=== PATIENT | male | born 1970 | race Caucasian/White ===

== ENCOUNTER 2019-04-09 03:00 | Emergency (ER) | payer OTHER ==
[2019-04-09 03:12] VITALS: TEMP 98.3
[2019-04-09] MEDS ORDERED: MORPHINE SULFATE 4 MG/ML SYRINGE IVP STA (03:16)
--- NOTE | 2019-04-09 03:20 | ED ---
Chest Pain HPI - General Stated Complaint: Chest Pain Time Seen by Provider: 04/09/19 03:05 - History of Present Illness Initial Comments: Tim is a 48-year-old morbidly obese male with history of hyperlipidemia and diabetes, former smoker who presents the ER today for evaluation of sudden onset severe right chest wall pain that began after a coughing fit. Patient reports he's recently been suffering from flulike illness with URI symptoms, subjective fevers and chills. Patient states that this evening he woke with sudden onset coughing fit and then developed severe pain in the right chest. Patient denies any cardiac history. Patient reports pain is severe it is causing nausea but no vomiting. Patient's at bedside states the patient is a minimally compliant diabetic. Has a history of high blood pressure is on lisinopril. Due to losing her insurance he has not been compliant with follow-up with Drs. She reports that for the past 6 months he's been complaining of lightheadedness and dizziness. He's recently began telling her that he doesn't believe he'll still be alive by the year due to feeling so unwell and being unwilling to follow-up with a physician. - Related Data Previous Rx's Medication Instructions Recorded Azithromycin [Zithromax Z-pack] 0 mg PO DIRECTED #6 tab 04/09/19 Allergies Allergy/AdvReac Type Severity Reaction Status Date / Time No Known Allergies Allergy Verified 04/09/19 03:12 Review of Systems ROS Statement: Those systems with pertinent positive or pertinent negative responses have been documented in the HPI. ROS Other: All systems not noted in ROS Statement are negative. EKG Findings - EKG Comments: EKG Findings:: EKG was obtained due to complaint of chest pain a 48-year-old lady obese male, EKG obtained at 3:14 AM, rate is 126 rhythm is sinus tachycardia there is a rightward axis, there are normal intervals, MO 152, QRS 90, QTc [address] elevations or depressions there is no evidence of acute ischemia or infarction. General Exam - General Exam Comments Initial Comments: Physical Exam GENERAL: Morbidly obese gentleman who appears acutely distressed due to pain HENT: Normocephalic, Atraumatic. EYES: PERRL, EOMI PULMONARY: Tachypnea, rapid shallow splinting respirations No audible rales rhonchi or wheezing was noted. CARDIOVASCULAR: Tachycardic regular, warm and well perfused extremities ABDOMEN: Morbidly obese SKIN: Skin is clear with no lesions or rashes and otherwise unremarkable. : Deferred NEUROLOGIC: Patient is alert and oriented x3. Moving all extremities spontaneously MUSCULOSKELETAL: Normal extremities with adequate strength and full range of motion. No lower extremity swelling or edema. No calf tenderness. PSYCHIATRIC: Anxious Course Vital Signs 04/09/19 04/09/19 04/09/19 03:07 03:37 04:00 Temperature 98.3 F Pulse Rate 129 H 104 H Pulse Rate [ 118 H Filler Wiper ] Respiratory 24 20 Rate Blood Pressure 114/83 118/65 O2 Sat by Pulse 95 95 Oximetry 04/09/19 05:00 Temperature Pulse Rate 101 H Pulse Rate [ Filler Wiper ] Respiratory 14 Rate Blood Pressure 103/64 O2 Sat by Pulse 95 Oximetry Disposition Clinical Impression: Right lower lobe pneumonia, Diabetes mellitus Disposition: HOME SELF-CARE Condition: Stable Instructions (If sedation given, give patient instructions): Bacterial Pneumonia (DC) Additional Instructions: Need to follow up with a primary care physician for repeat chest x-ray, the [facility] [place] will see you despite not having insurance. They have a sliding scale pay option. You can go to [employer] for coupons for her medications including her antibiotic which should be undertaken dollars with coupon. Prescriptions: Azithromycin [Zithromax Z-pack] 0 mg PO DIRECTED #6 tab Is patient prescribed a controlled substance at d/c from ED?: No Referrals: Nonstaff,Physician [Primary Care Provider] - 1-2 days
[2019-04-09 03:24] LABS: Basophils # (A) 0.2 k/uL (0-0.2); Basophils % (A) 1 %; Eosinophils # (A) 0.4 k/uL (0-0.7); Eosinophils % (A) 3 %; HCT 49.3 % (39.0-53.0); HGB 15.9 gm/dL (13.0-17.5); Lymphocytes # (A) 2.8 k/uL (1.0-4.8); Lymphocytes % (A) 19 %; MCH 27.5 pg (25.0-35.0); MCHC 32.3 g/dL (31.0-37.0); MCV 85.2 fL (80.0-100.0); Mean Platelet Volume 6.9; Monocytes # (A) 0.9 k/uL (0-1.0); Monocytes % (A) 6 %; Neutrophils # (A) 10.2 k/uL (1.3-7.7); Neutrophils % (A) 69 %; Platelet Count 392 k/uL (150-450); RBC 5.79 m/uL (4.30-5.90); RDW 13.1 % (11.5-15.5); WBC 14.8 k/uL (3.8-10.6)
[2019-04-09 03:35] LABS: ALT 20 U/L (21-72); AST 21 U/L (17-59); African American GFR (CKD) >90 (>60 ml/min/1.73 sqM); Albumin 4.3 g/dL (3.5-5.0); Alkaline Phosphatase 105 U/L (38-126); Anion Gap 13 mmol/L; Blood Urea Nitrogen 20 mg/dL (9-20); Calcium 9.8 mg/dL (8.4-10.2); Carbon Dioxide 26 mmol/L (22-30); Chloride 100 mmol/L (98-107); Glucose 202 mg/dL (74-99); INR 0.9 (<1.2); Magnesium 1.7 mg/dL (1.6-2.3); Partial Thromboplastin Time 25.8 sec (22.0-30.0); Potassium 4.2 mmol/L (3.5-5.1); Prothrombin Time 9.6 sec (9.0-12.0); Sodium 139 mmol/L (137-145); Total Bilirubin 0.2 mg/dL (0.2-1.3); Total Protein 7.5 g/dL (6.3-8.2)
--- NOTE | 2019-04-09 03:47 | XR ---
EXAMINATION TYPE: XR chest 1V portable DATE OF EXAM: 04/09/2019 COMPARISON: NONE HISTORY: Chest pain TECHNIQUE: Single frontal view of the chest is obtained. FINDINGS: Heart is normal. There is some atelectasis left midlung. The other lung ortega are clear. There is no heart failure. There is probably some atelectasis right lung base. IMPRESSION: Bilateral subsegmental atelectasis. Normal heart.
--- NOTE | 2019-04-09 04:31 | CT ---
EXAMINATION TYPE: CT chest angio for PE DATE OF EXAM: 04/09/2019 COMPARISON: None HISTORY: lower right chest pain CT DLP: 1210.8 mGycm Automated exposure control for dose reduction was used. CONTRAST: CT Chest for pulmonary embolism performed with with IV Contrast, patient injected with 150 mL of Isov ue 370. There are 3-D post processed images. FINDINGS: There is 3.5 cm rounded area of masslike consolidation at the lateral right lung base. There is no pl eural effusion. There is no pericardial effusion. Heart size is normal. Thoracic aorta shows no aneurysm or dissection. There is enlarged 2.2 cm pretracheal lymph node. Ther e are mediastinal lymph nodes that measure up to 1.5 cm. There are no hilar masses. There is normal contrast opacification of the pulmonary arteries. I see no filling defects. There are small bilateral bronchial lymph nodes up to 1 cm. There is some spurring in the thoracic spine. I se e no bony destructive process. There is small area of subsegmental atelectasis in the superior segmen t left lower lobe near the lateral chest wall. IMPRESSION: No evidence of pulmonary embolism. Masslike infiltrate lateral right lung base. Follow-up is recommen ded show clearing. Mild mediastinal and bronchial adenopathy. Pulmonary infarct is possible in the ri ght lower lobe in this patient with a history of chest pain.
[2019-04-09] MEDS ORDERED: ACET/COD 300 MG/30 MG STARTER PACK 6 TAB BTL PO STA (05:36)
[2019-04-09] MEDS ORDERED: AZITHROMYCIN 500 MG TAB PO STA (05:36)
[2019-04-09 06:08] VITALS: BP 116/83; PULSE 96; RESP 18
== END 2019-04-09 06:11 | disposition home or self-care (01) ==
LOC: EC 03:00
DX: J18.9 Pneumonia, unspecified organism (principal); R07.9 Chest pain, unspecified; R42 Dizziness and giddiness; E78.5 Hyperlipidemia, unspecified; E11.9 Type 2 diabetes mellitus without complications; E66.01 Morbid (severe) obesity due to excess calories; Z87.891 Personal history of nicotine dependence; Z68.41 Body mass index [BMI] 40.0-44.9, adult
CPT/HCPCS: 36415; 93005; 83880; 80053; 83735; 84484; 85025; 85610; 85730; 71045; 71275; 96374; 99285; J2270; Q9967

== ENCOUNTER 2020-06-15 13:06 | Observation (INO) | payer BC ==
[2020-06-15] MEDS ORDERED: ALBUTEROL HFA INHALER INHALATION STA (13:33)
--- NOTE | 2020-06-15 13:38 | ED ---
General Adult HPI - General Chief complaint: Shortness of Breath Stated complaint: Shortness of breath,congested Time Seen by Provider: 06/15/20 13:20 Source: patient, RN notes reviewed Mode of arrival: ambulatory Limitations: no limitations - History of Present Illness Initial comments: Patient is a pleasant 50-year-old male presenting to the emergency Department with complaints of fatigue. Symptoms present over the past few days. Symptoms somewhat worsening. Patient does have some nasal congestion at nighttime. Occasional cough. Patient does feel a little short of breath, especially at nighttime with some wheezing. Patient has had chills and myalgias. No loss of taste or loss of smell. No leg pain or leg swelling. - Related Data Home Medications Medication Instructions Recorded Confirmed Cyclobenzaprine [Flexeril] 10 mg PO HS 06/15/20 06/15/20 INSULIN ASPART (NovoLOG) [NovoLOG 60 unit SQ PC-TID 06/15/20 06/15/20 (formulary)] Insulin Glargine,Hum.rec.anlog 65 unit SQ DAILY 06/15/20 06/15/20 [Basaglar Kwikpen U-100] Lovastatin [Mevacor] 40 mg PO HS 06/15/20 06/15/20 Meloxicam [Mobic] 15 mg PO HS 06/15/20 06/15/20 Methylphenidate HCl 20 mg PO DAILY 06/15/20 06/15/20 [Methylphenidate HCl ER] lisinopriL [Prinivil] 20 mg PO DAILY 06/15/20 06/15/20 metFORMIN HCL 500 mg PO BID 06/15/20 06/15/20 Allergies Allergy/AdvReac Type Severity Reaction Status Date / Time No Known Allergies Allergy Verified 06/15/20 14:12 Review of Systems ROS Statement: Those systems with pertinent positive or pertinent negative responses have been documented in the HPI. ROS Other: All systems not noted in ROS Statement are negative. Constitutional: Reports: chills. Denies: fever Eyes: Denies: eye pain ENT: Reports: congestion. Denies: ear pain Respiratory: Reports: cough, dyspnea Cardiovascular: Denies: chest pain Endocrine: Reports: fatigue Gastrointestinal: Denies: abdominal pain Genitourinary: Denies: dysuria Musculoskeletal: Denies: back pain Skin: Denies: lesions Neurological: Denies: weakness Past Medical History Past Medical History: Diabetes Mellitus, Hyperlipidemia History of Any Multi-Drug Resistant Organisms: None Reported Past Surgical History: No Surgical Hx Reported Additional Past Surgical History / Comment(s): testicle Past Psychological History: Anxiety Smoking Status: Former smoker Past Alcohol Use History: Rare Past Drug Use History: None Reported General Exam Limitations: no limitations General appearance: alert, in no apparent distress Head exam: Present: normocephalic Eye exam: Present: normal appearance Neck exam: Present: normal inspection Respiratory exam: Present: normal lung sounds bilaterally. Absent: respiratory distress, wheezes Cardiovascular Exam: Present: regular rate, normal rhythm GI/Abdominal exam: Present: soft. Absent: tenderness Extremities exam: Present: normal inspection. Absent: pedal edema, calf tenderness Neurological exam: Present: alert Psychiatric exam: Present: normal affect, normal mood Skin exam: Present: normal color Course Vital Signs 06/15/20 13:09 Temperature 98.2 F Pulse Rate 103 H Respiratory 24 Rate Blood Pressure 175/92 O2 Sat by Pulse 93 L Oximetry - Reevaluation(s) Reevaluation #1: 06/15/20 14:53 Patient does meet sepsis criteria diagnosed at 1450. Blood culture and lactic a good have been ordered. IV antibiotics will be ordered. EKG Findings - EKG Comments: EKG Findings:: Sinus tachycardia 101. MO 188. QRS 82. QT 356. QTc 461. Right axis. Inferior T wave inversion. Normal QRS. Medical Decision Making - Medical Decision Making Patient reevaluated and updated. Case was discussed in detail with Dr. Phillips, who will admit For hospital call. Computed tomography scan of the chest will be ordered secondary to mild elevation of d-dimer. - Lab Data Result diagrams: 06/15/20 13:55 06/15/20 13:55 Lab Results 06/15/20 06/15/20 06/15/20 Range/Units 13:55 13:55 13:55 WBC 12.0 H (3.8-10.6) k/uL RBC 5.70 (4.30-5.90) m/uL Hgb 16.0 (13.0-17.5) gm/dL Hct 48.3 (39.0-53.0) % MCV 84.6 (80.0-100.0) fL MCH 28.1 (25.0-35.0) pg MCHC 33.2 (31.0-37.0) g/dL RDW 13.3 (11.5-15.5) % Plt Count 245 (150-450) k/uL MPV 7.4 Neutrophils % 80 % Lymphocytes % 11 % Monocytes % 4 % Eosinophils % 3 % Basophils % 1 % Neutrophils # 9.7 H (1.3-7.7) k/uL Lymphocytes # 1.3 (1.0-4.8) k/uL Monocytes # 0.5 (0-1.0) k/uL Eosinophils # 0.3 (0-0.7) k/uL Basophils # 0.1 (0-0.2) k/uL PT 9.9 (9.0-12.0) sec INR 0.9 (<1.2) APTT 25.1 (22.0-30.0) sec D-Dimer 0.64 H (<0.60) mg/L FEU Sodium 130 L (137-145) mmol/L Potassium 4.7 (3.5-5.1) mmol/L Chloride 97 L (98-107) mmol/L Carbon Dioxide 26 (22-30) mmol/L Anion Gap 7 mmol/L BUN 15 (9-20) mg/dL Creatinine 0.59 L (0.66-1.25) mg/dL Est GFR (CKD-EPI)AfAm >90 (>60 ml/min/1.73 sqM) Est GFR (CKD-EPI)NonAf >90 (>60 ml/min/1.73 sqM) Glucose 329 H (74-99) mg/dL Plasma Lactic Acid Juarez (0.7-2.0) mmol/L Calcium 9.0 (8.4-10.2) mg/dL Magnesium 1.8 (1.6-2.3) mg/dL Total Bilirubin 0.7 (0.2-1.3) mg/dL AST 19 (17-59) U/L ALT 22 (4-49) U/L Alkaline Phosphatase 91 (38-126) U/L Lactate Dehydrogenase 472 (313-618) U/L C-Reactive Protein 43.3 H (<10.0) mg/L Total Protein 6.7 (6.3-8.2) g/dL Albumin 3.9 (3.5-5.0) g/dL Coronavirus (PCR) (Not Detectd) 06/15/20 06/15/20 Range/Units 13:55 13:55 WBC (3.8-10.6) k/uL RBC (4.30-5.90) m/uL Hgb (13.0-17.5) gm/dL Hct (39.0-53.0) % MCV (80.0-100.0) fL MCH (25.0-35.0) pg MCHC (31.0-37.0) g/dL RDW (11.5-15.5) % Plt Count (150-450) k/uL MPV Neutrophils % % Lymphocytes % % Monocytes % % Eosinophils % % Basophils % % Neutrophils # (1.3-7.7) k/uL Lymphocytes # (1.0-4.8) k/uL Monocytes # (0-1.0) k/uL Eosinophils # (0-0.7) k/uL Basophils # (0-0.2) k/uL PT (9.0-12.0) sec INR (<1.2) APTT (22.0-30.0) sec D-Dimer (<0.60) mg/L FEU Sodium (137-145) mmol/L Potassium (3.5-5.1) mmol/L Chloride (98-107) mmol/L Carbon Dioxide (22-30) mmol/L Anion Gap mmol/L BUN (9-20) mg/dL Creatinine (0.66-1.25) mg/dL Est GFR (CKD-EPI)AfAm (>60 ml/min/1.73 sqM) Est GFR (CKD-EPI)NonAf (>60 ml/min/1.73 sqM) Glucose (74-99) mg/dL Plasma Lactic Acid Juarez 1.5 (0.7-2.0) mmol/L Calcium (8.4-10.2) mg/dL Magnesium (1.6-2.3) mg/dL Total Bilirubin (0.2-1.3) mg/dL AST (17-59) U/L ALT (4-49) U/L Alkaline Phosphatase (38-126) U/L Lactate Dehydrogenase (313-618) U/L C-Reactive Protein (<10.0) mg/L Total Protein (6.3-8.2) g/dL Albumin (3.5-5.0) g/dL Coronavirus (PCR) Not Detected (Not Detectd) - Radiology Data Radiology results: image reviewed (Chest x-ray shows mild right lower lobe infiltrate) Critical Care Time Critical Care Time: Yes Total Critical Care Time: 33 Disposition Clinical Impression: Pneumonia, Sepsis Disposition: ADMITTED IP TO THIS HOSP Is patient prescribed a controlled substance at d/c from ED?: No Referrals: Aiden Blanco MD [Primary Care Provider] - 1-2 days Decision Time: 14:53
[2020-06-15 14:02] LABS: Basophils # (A) 0.1 k/uL (0-0.2); Basophils % (A) 1 %; Eosinophils # (A) 0.3 k/uL (0-0.7); Eosinophils % (A) 3 %; HCT 48.3 % (39.0-53.0); Lymphocytes # (A) 1.3 k/uL (1.0-4.8); Lymphocytes % (A) 11 %; MCH 28.1 pg (25.0-35.0); MCHC 33.2 g/dL (31.0-37.0); MCV 84.6 fL (80.0-100.0); Mean Platelet Volume 7.4; Monocytes # (A) 0.5 k/uL (0-1.0); Monocytes % (A) 4 %; Neutrophils # (A) 9.7 k/uL (1.3-7.7); Neutrophils % (A) 80 %; Platelet Count 245 k/uL (150-450); RDW 13.3 % (11.5-15.5)
[2020-06-15 14:15] LABS: Potassium 4.7 mmol/L (3.5-5.1)
[2020-06-15 14:17] LABS: ALT 22 U/L (4-49); AST 19 U/L (17-59); African American GFR (CKD) >90 (>60 ml/min/1.73 sqM); Albumin 3.9 g/dL (3.5-5.0); Alkaline Phosphatase 91 U/L (38-126); Anion Gap 7 mmol/L; Blood Urea Nitrogen 15 mg/dL (9-20); C Reactive Protein 43.3 mg/L (<10.0); Carbon Dioxide 26 mmol/L (22-30); Chloride 97 mmol/L (98-107); Glucose 329 mg/dL (74-99); INR 0.9 (<1.2); LDH 472 U/L (313-618); Magnesium 1.8 mg/dL (1.6-2.3); Non-African American GFR(CKD) >90 (>60 ml/min/1.73 sqM); Partial Thromboplastin Time 25.1 sec (22.0-30.0); Prothrombin Time 9.9 sec (9.0-12.0); Sodium 130 mmol/L (137-145); Total Bilirubin 0.7 mg/dL (0.2-1.3); Total Protein 6.7 g/dL (6.3-8.2)
--- NOTE | 2020-06-15 14:26 | XR ---
EXAMINATION TYPE: XR chest 1V portable DATE OF EXAM: 06/15/2020 COMPARISON: 04/09/2019 HISTORY: Pneumonia. Cough. TECHNIQUE: Single view FINDINGS: Heart and mediastinum are normal. There is probably a mild infiltrate in the right lower lo be medially. The other lung ortega are clear. There are no hilar masses. There is no pleural effusion . There are chest leads. IMPRESSION: There is probably a mild right lower lobe pneumonia.
[2020-06-15 14:32] LABS: D-Dimer 0.64 mg/L FEU (<0.60)
[2020-06-15] MEDS ORDERED: PNEUMONIA PROTOCOL UTILIZED 1 EACH MISC PO PRN (14:54)
[2020-06-15] MEDS ORDERED: AZITHROMYCIN 500 MG in SODIUM CHLORIDE 0.9% 250 ML IVPB STA (14:54)
[2020-06-15] MEDS ORDERED: IPRATROPIUM-ALBUTEROL 3 ML NEB INHALATION PRN (14:54)
[2020-06-15] MEDS: SODIUM CHLORIDE 0.9% 1,000 ML IV SCH (15:40)
[2020-06-15] MEDS ORDERED: ACETAMINOPHEN TAB 325 MG TAB PO STA (15:44)
--- NOTE | 2020-06-15 16:05 | CT ---
EXAMINATION TYPE: CT angio chest DATE OF EXAM: 06/15/2020 COMPARISON: 04/09/2019 HISTORY: Dyspnea CT DLP: 918.2 mGycm Automated exposure control for dose reduction was used. CONTRAST: Performed with IV Contrast, patient injected with 100 mL of Isovue 370. There are 3-D post processed images. There are mild bilateral pleural effusions. There is some interstitial infiltrate and subsegmental at electasis at the lung bases. There is no pericardial effusion. Heart appears normal. There are no hilar masses. There are some mediastinal multiple lymph nodes that measure up to 1.5 cm. Thoracic aorta is intact. There is no aneurysm or dissection. There is normal contrast opacification of the pulmonary arteries. There are no filling defects. IMPRESSION: No evidence of pulmonary embolism. Pleural effusions with basilar mild infiltrates and atelectasis. M ediastinal mild lymphadenopathy. Adenopathy unchanged. There is clearing of a rounded infiltrate lateral right lung base compared to o ld exam. There is new pleural fluid and basilar pulmonary infiltrates compared to old exam.
[2020-06-15 17:14] LABS: Glucose,Whole Blood 304 mg/dL (75-99)
[2020-06-15] MEDS ORDERED: MELATONIN 3 MG TABLET PO PRN (17:55)
[2020-06-15] MEDS ORDERED: NALOXONE 0.4 MG/ML 1 ML VIAL IV PRN (17:55)
[2020-06-15] MEDS: INSULIN ASPART (NovoLOG) 100 UNIT/ML VIAL SQ SCH ×2 (18:04→20:50)
[2020-06-15] MEDS: dexAMETHasone 2 MG TAB PO SCH (18:04)
--- NOTE | 2020-06-15 18:04 | P.HPIM ---
History of Present Illness H&P Date: 06/15/20 Chief Complaint: shortness of breath Patient is a 50-year-old male with a past medical history of diabetes type 2 insulin requiring, dyslipidemia, and prior tobacco abuse who presented to the ER with complaints of fatigue, cough, congestion, and shortness of breath. In the ER he underwent an extensive evaluation. On arrival he was tachycardic to 103 and had a pulse ox of 93% on room air. Initial laboratory analysis showed white blood cell count of 12, d-dimer mildly elevated at 0.64, sodium 130, glucose 329, CRP elevated at 43.3, normal LDH at 472. Initial Covid 19 antigen testing was negative. He underwent a CTA of the chest secondary to elevated d-dimer. There is bibasilar pulmonary infiltrates and pleural effusion. Patient seen and examined at bedside.Patient seen and examined at bedside. Reports that for the last several days he has felt fatigued. He is getting winded more easily with exertion. He reports a cough that is nonproductive. + diffuse body aches. He reports that when he lays flat he feels increasing shortness of breath with a cough. He also reports wheezing when he is laying flat. He denies any lower extremity edema. He denies any fevers, + chills. He denies lower extremity edema. No known hx of heart failure. He denies any known COVID 19 exposures. He reports that he is noncomplient with his insulin at home. He thinks that he takes 60 of basaglar and 60 of novolog TID. Her reports last A1C was 11 in Jan 2020. Pertinent positives and negatives as discussed in HPI, a complete review of systems was performed and all other systems are negative. General: non toxic, no distress, appears older than stated age Derm: warm, dry Head: atraumatic, normocephalic, symmetric Eyes: EOMI, no lid lag, anicteric sclera, pupils equal round reactive to light ENT: Nose and ears atraumatic, no thrush, no pharyngeal erythema Neck: No thyromegaly, no cervical lymphadenopathy, trachea midline, supple Mouth: no lip lesion, mucus membranes dry Cardiovascular: S1S2 reg, no murmur, positive posterior tibial pulse bilateral, no edema, capillary refill less than 2 seconds Lungs: Decreased bs bilateral, no ronchi, no rales, no wheeze, no accessory muscle use Abdominal: soft, nontender to palpation, no guarding, no appreciable org anomegaly, normal bowel sounds Ext: no gross muscle atrophy, muscle strength muscle strength 5 out of 5 in all 4 extremities, no contractures Neuro: CN II-XI grossly intact, light touch intact all 4 extremities, finger to nose within normal limits, Psych: Alert, oriented, appropriate affect Pulmonary infiltrates - concern is for COVID vs bacterial pneumonia vs CHF - await procalcitonin - Await sputum and blood cultures - BNP, troponin, echo - zithromax, rocephin - follow COVID labs DM 2 with hyperglycemia - hx of non compliance - start low dose a levemir 30 and novolog 10 + sliding scale - SSI - await A1C - hold metformin HTN, controlled - resume lisinopril - follow BP HLD - statin Morbid obesity - structued outpatient weight loss The patient is admitted with an anticipated greater than 2 midnight stay for evaluation of Pneumonia. Surrogate decision-maker: CODE STATUS: full DVT prophylaxis: Lovenox Discussed with: patient, ED physician, nursing Anticipated discharge date: 2-[address]: home A total of 60 minutes was spent on the care of this complex patient more than 50% of the time was spent in counseling and care coordination. Past Medical History Past Medical History: Diabetes Mellitus, Hyperlipidemia, Hypertension, Pneumonia History of Any Multi-Drug Resistant Organisms: None Reported Past Surgical History: No Surgical Hx Reported Additional Past Surgical History / Comment(s): testicular undescended surgery Past Anesthesia/Blood Transfusion Reactions: No Reported Reaction Past Psychological History: Anxiety Smoking Status: Former smoker Past Alcohol Use History: Rare Past Drug Use History: None Reported - Past Family History Father Family Medical History: Deep Vein Thrombosis (DVT), Pulmonary Embolus Mother Family Medical History: Deep Vein Thrombosis (DVT), Pulmonary Embolus Medications and Allergies Home Medications Medication Instructions Recorded Confirmed Type Cyclobenzaprine [Flexeril] 10 mg PO HS 06/15/20 06/15/20 History INSULIN ASPART (NovoLOG) [NovoLOG 60 unit SQ PC-TID 06/15/20 06/15/20 History (formulary)] Insulin Glargine,Hum.rec.anlog 65 unit SQ DAILY 06/15/20 06/15/20 History [Basaglar Kwikpen U-100] Lovastatin [Mevacor] 40 mg PO HS 06/15/20 06/15/20 History Meloxicam [Mobic] 15 mg PO HS 06/15/20 06/15/20 History Methylphenidate HCl 20 mg PO DAILY 06/15/20 06/15/20 History [Methylphenidate HCl ER] lisinopriL [Prinivil] 20 mg PO DAILY 06/15/20 06/15/20 History metFORMIN HCL 500 mg PO BID 06/15/20 06/15/20 History Allergies Allergy/AdvReac Type Severity Reaction Status Date / Time No Known Allergies Allergy Verified 06/15/20 14:12 Physical Exam Osteopathic Statement: *. No significant issues noted on an osteopathic structural exam other than those noted in the History and Physical/Consult. Vitals: Vital Signs Temp Pulse Resp BP Pulse Ox 06/15/20 15:58 98.8 F 98 18 141/82 94 L 06/15/20 13:09 98.2 F 103 H 24 175/92 93 L Intake and Output 06/15/20 06/15/20 06/15/20 06:59 14:59 22:59 Other: Weight 147.871 kg 147.871 kg Results CBC & Chem 7: 06/15/20 13:55 06/15/20 13:55 Labs: Abnormal Lab Results - Last 24 Hours (Table) 06/15/20 06/15/20 06/15/20 Range/Units 13:55 13:55 13:55 WBC 12.0 H (3.8-10.6) k/uL Neutrophils # 9.7 H (1.3-7.7) k/uL D-Dimer 0.64 H (<0.60) mg/L FEU Sodium 130 L (137-145) mmol/L Chloride 97 L (98-107) mmol/L Creatinine 0.59 L (0.66-1.25) mg/dL Glucose 329 H (74-99) mg/dL C-Reactive Protein 43.3 H (<10.0) mg/L Thrombosis Risk Factor Assmnt - Choose All That Apply Each Factor Represents 1 point: Age 41-60 years, Obesity (BMI >25) Each Risk Factor Represents 3 Points: Family history of DVT/PE Thrombosis Risk Factor Assessment Total Risk Factor Score: 5 Thrombosis Risk Factor Assessment Level: High Risk
[2020-06-15] MEDS: ENOXAPARIN 40 MG/0.4 ML SYRINGE SQ SCH (18:06)
[2020-06-15 20:37] LABS: Glucose,Whole Blood 298 mg/dL (75-99)
[2020-06-15] MEDS: CYCLOBENZAPRINE 10 MG TAB PO SCH (20:49)
[2020-06-15] MEDS: MELOXICAM 7.5 MG TAB PO SCH (20:49)
[2020-06-15] MEDS: ATORVASTATIN 10 MG TAB PO SCH (20:49)
[2020-06-15 22:34] LABS: Hemoglobin A1C 12.4 % (4.0-6.0)
[2020-06-15 22:48] LABS: Ferritin 323.1 ng/mL (22.0-322.0)
[2020-06-16] MEDS ORDERED: ALBUTEROL NEBULIZED 2.5 MG/3 ML INHALATION PRN (00:37)
[2020-06-16] MEDS: SODIUM CHLORIDE 0.9% 1,000 ML IV SCH ×2 (02:25→20:55)
[2020-06-16 02:28] LABS: Glucose,Whole Blood 329 mg/dL (75-99)
[2020-06-16 06:49] LABS: Basophils % (A) 0 %; Eosinophils # (A) 0.1 k/uL (0-0.7); Eosinophils % (A) 1 %; HCT 51.5 % (39.0-53.0); HGB 16.9 gm/dL (13.0-17.5); Lymphocytes # (A) 0.7 k/uL (1.0-4.8); Lymphocytes % (A) 7 %; MCH 28.3 pg (25.0-35.0); MCHC 32.8 g/dL (31.0-37.0); Mean Platelet Volume 7.3; Monocytes # (A) 0.2 k/uL (0-1.0); Monocytes % (A) 1 %; Neutrophils # (A) 10.1 k/uL (1.3-7.7); Neutrophils % (A) 91 %; Platelet Count 311 k/uL (150-450); RBC 5.99 m/uL (4.30-5.90); RDW 13.3 % (11.5-15.5); WBC 11.1 k/uL (3.8-10.6)
[2020-06-16 06:54] LABS: Glucose,Whole Blood 352 mg/dL (75-99)
[2020-06-16] MEDS: INSULIN ASPART (NovoLOG) 100 UNIT/ML VIAL SQ SCH ×7 (07:26→20:55)
[2020-06-16] MEDS: lisinopriL 20 MG TAB PO SCH (07:27)
[2020-06-16] MEDS: ENOXAPARIN 40 MG/0.4 ML SYRINGE SQ SCH (07:27)
[2020-06-16] MEDS: dexAMETHasone 2 MG TAB PO SCH (07:27)
[2020-06-16] MEDS: INSULIN DETEMIR (LEVEMIR) 100 UNIT/ML SYR SQ SCH (07:27)
[2020-06-16] MEDS ORDERED: AZITHROMYCIN 500 MG TAB PO SCH (09:00)
--- NOTE | 2020-06-16 09:29 | XR ---
EXAMINATION TYPE: XR chest 2V DATE OF EXAM: 06/16/2020 COMPARISON: Prior chest x-ray 06/15/2020 HISTORY: Pneumonia TECHNIQUE: Frontal and lateral views of the chest are obtained. FINDINGS: Bandlike areas of increased attenuation present at the left midlung, lung bases. No eviden t pneumothorax or pleural effusion. Cardiac mediastinal silhouette, pulmonary vascularity and hi ar e stable. Right hemidiaphragm remains elevated. IMPRESSION: Possible underlying atelectasis, correlate and follow-up.
[2020-06-16 09:50] LABS: Albumin 4.6 g/dL (3.80-4.90); Albumin/Globulin Ratio 1.92 (1.60-3.17); Anion Gap 9.4 mmol/L (4.00-12.00); BUN/Creat Ratio 21.25 Ratio (12.00-20.00); C Reactive Protein 7.7 mg/dL (0.0-0.8); Calcium 9.5 mg/dL (8.7-10.3); Carbon Dioxide 22.6 mmol/L (21.6-31.8); Globulin 2.4 g/dL (1.6-3.3); Non-African American GFR(CKD) 102.7 (60.0-200.0); Potassium 5.5 mmol/L (3.5-5.5); Total Bilirubin 0.6 mg/dL (0.3-1.2)
[2020-06-16 10:08] LABS: Ferritin 490.8 ng/mL (22.0-322.0)
[2020-06-16 11:32] LABS: Glucose,Whole Blood 378 mg/dL (75-99)
[2020-06-16 15:25] VITALS: BMI 45.4
[2020-06-16 16:54] LABS: Glucose,Whole Blood 303 mg/dL (75-99)
--- NOTE | 2020-06-16 17:08 | P.PN ---
Subjective Progress Note Date: 06/16/20 Patient was seen and examined at the bedside on 06/16. Patient reported some improvement in his shortness of breath, the reports ongoing mildly productive cough. Denied any additional complaints. Denied additional fevers, chills, chest pain, nausea, vomiting, abdominal pain. Objective - Vital Signs Vital signs: Vital Signs Temp 97.6 F 06/16/20 14:03 Pulse 101 H 06/16/20 14:03 Resp 22 06/16/20 14:03 BP 150/67 06/16/20 14:03 Pulse Ox 93 L 06/16/20 14:03 Intake & Output 06/15/20 06/16/20 06/16/20 18:59 06:59 18:59 Intake Total 700 Balance 700 Weight 147.871 kg 147.871 kg Intake: Intake, IV Titration 700 Amount Azithromycin 500 mg In 250 Sodium Chloride 0.9% 250 ml @ 250 mls/hr IVPB ONCE STA Rx#:[id number] Sodium Chloride 0.9% 1, 400 000 ml @ 50 mls/hr IV . Q20H [facility] Rx#:[id number] cefTRIAXone 2 gm In 50 Sodium Chloride 0.9% 50 ml @ 100 mls/hr IVPB ONCE STA Rx#:[id number] Other: Voiding Method Toilet - Exam General: Non-toxic, in no acute distress, appears stated age, morbidly obese HEENT: NC/AT, anicteric sclerae, moist conjunctiva, no lid-lag, PERRLA Cardiovascular: S1/S2 wnl, no murmurs, rubs, or gallops Lungs: Clear to auscultation, normal respiratory effort, no accessory muscle use Abdominal: Soft, non-tender, non-distended, no guarding, rebound, or rigidity Skin: Warm, dry Extremities: No edema or contractures Psychiatric: Alert and oriented to person, place and time, appropriate affect Neuro: CN II-XII grossly intact, Strength 5/5 in all 4 extremities, Speech intact, Sensation to light touch grossly intact throughout - Labs CBC & Chem 7: 06/16/20 06:28 06/16/20 06:28 Labs: Abnormal Lab Results - Last 24 Hours (Table) 06/15/20 06/15/20 06/15/20 Range/Units 13:55 16:39 18:03 WBC (3.8-10.6) k/uL RBC (4.30-5.90) m/uL Neutrophils # (1.3-7.7) k/uL Lymphocytes # (1.0-4.8) k/uL Sodium (135-145) mmol/L BUN/Creatinine Ratio (12.00-20.00) Ratio Glucose (70-110) mg/dL POC Glucose (mg/dL) 304 H (75-99) mg/dL Hemoglobin A1c 12.4 H (4.0-6.0) % Ferritin 323.1 H (22.0-322.0) ng/mL Lactate Dehydrogenase (120-246) U/L C-Reactive Protein (0.0-0.8) mg/dL 06/15/20 06/16/20 06/16/20 Range/Units 20:36 02:26 06:28 WBC 11.1 H (3.8-10.6) k/uL RBC 5.99 H (4.30-5.90) m/uL Neutrophils # 10.1 H (1.3-7.7) k/uL Lymphocytes # 0.7 L (1.0-4.8) k/uL Sodium (135-145) mmol/L BUN/Creatinine Ratio (12.00-20.00) Ratio Glucose (70-110) mg/dL POC Glucose (mg/dL) 298 H 329 H (75-99) mg/dL Hemoglobin A1c (4.0-6.0) % Ferritin (22.0-322.0) ng/mL Lactate Dehydrogenase (120-246) U/L C-Reactive Protein (0.0-0.8) mg/dL 06/16/20 06/16/20 06/16/20 Range/Units 06:28 06:52 11:30 WBC (3.8-10.6) k/uL RBC (4.30-5.90) m/uL Neutrophils # (1.3-7.7) k/uL Lymphocytes # (1.0-4.8) k/uL Sodium 131 L (135-145) mmol/L BUN/Creatinine Ratio 21.25 H (12.00-20.00) Ratio Glucose 364 H (70-110) mg/dL POC Glucose (mg/dL) 352 H 378 H (75-99) mg/dL Hemoglobin A1c (4.0-6.0) % Ferritin 490.8 H (22.0-322.0) ng/mL Lactate Dehydrogenase 260 H (120-246) U/L C-Reactive Protein 7.7 H (0.0-0.8) mg/dL Microbiology - Last 24 Hours (Table) 06/15/20 13:55 Blood Culture - Preliminary Blood No Growth after 24 hours Assessment and Plan Plan: Shortness of breath, bilateral infiltrates -Highly suspicious for COVID pneumonitis -Procalcitonin within normal limits -Awaiting echocardiogram -Awaiting repeat coronavirus testing -Continue with dexamethasone -Will discontinue azithromycin and ceftriaxone -Isolation precautions -Supplemental oxygen Type 2 DM -Continue with Levemir 30 units daily at bedtime with aspart 10 units before meals 3 times a day Hypertension, hyperlipidemia -Continue with home meds DVT prophylaxis -Lovenox Discussed with: Patient Anticipated discharge date: 2-[address]: Home A total of 35 minutes was spent on the care of this complex patient more than 50% of the time was spent in counseling and care coordination.
[2020-06-16 20:27] LABS: Glucose,Whole Blood 355 mg/dL (75-99)
[2020-06-16] MEDS: ALBUTEROL HFA INHALER INHALATION PRN (20:37)
[2020-06-16] MEDS: CYCLOBENZAPRINE 10 MG TAB PO SCH (20:54)
[2020-06-16] MEDS: ATORVASTATIN 10 MG TAB PO SCH (20:54)
[2020-06-16] MEDS: MELOXICAM 7.5 MG TAB PO SCH (20:54)
[2020-06-17 02:14] LABS: Glucose,Whole Blood 318 mg/dL (75-99)
[2020-06-17 06:40] LABS: Basophils % (A) 0 %; Eosinophils # (A) 0.1 k/uL (0-0.7); Eosinophils % (A) 0 %; HGB 15.2 gm/dL (13.0-17.5); Lymphocytes # (A) 1.7 k/uL (1.0-4.8); Lymphocytes % (A) 12 %; MCH 28.7 pg (25.0-35.0); MCV 87.2 fL (80.0-100.0); Mean Platelet Volume 7.5; Monocytes # (A) 0.7 k/uL (0-1.0); Monocytes % (A) 5 %; Neutrophils # (A) 11.1 k/uL (1.3-7.7); Neutrophils % (A) 80 %; Platelet Count 298 k/uL (150-450); RBC 5.28 m/uL (4.30-5.90); RDW 13.6 % (11.5-15.5); WBC 13.9 k/uL (3.8-10.6)
[2020-06-17 07:14] LABS: Glucose,Whole Blood 344 mg/dL (75-99)
[2020-06-17] MEDS: ENOXAPARIN 40 MG/0.4 ML SYRINGE SQ SCH (07:51)
[2020-06-17] MEDS: INSULIN ASPART (NovoLOG) 100 UNIT/ML VIAL SQ SCH ×4 (07:51→13:12)
[2020-06-17] MEDS: INSULIN DETEMIR (LEVEMIR) 100 UNIT/ML SYR SQ SCH (07:52)
[2020-06-17] MEDS: dexAMETHasone 2 MG TAB PO SCH (07:52)
[2020-06-17] MEDS: lisinopriL 20 MG TAB PO SCH (07:52)
[2020-06-17] MEDS ORDERED: INSULIN DETEMIR (LEVEMIR) 100 UNIT/ML SYR SQ ONE (07:57)
[2020-06-17] MEDS: ALBUTEROL HFA INHALER INHALATION PRN ×2 (08:17→11:22)
[2020-06-17 08:43] VITALS: BP 178/103; PULSE 86; RESP 22; TEMP 97.9
--- NOTE | 2020-06-17 09:51 | ECHOF ---
Referral Reason:CHF MEASUREMENTS -------- HEIGHT: 180.3 cm WEIGHT: 147.9 kg BP: 161/83 RVIDd: 3.9 cm (< 3.3) IVSd: 1.9 cm (0.6 - 1.1) LVIDd: 4.2 cm (3.9 - 5.3) LVPWd: 1.5 cm (0.6 - 1.1) IVSs: 2.2 cm LVIDs: 2.1 cm LVPWs: 2.2 cm LAESV Index (A-L): 18.40 ml/m Ao Diam: 3.6 cm (2.0 - 3.7) AV Cusp: 2.2 cm (1.5 - 2.6) MV EXCURSION: 19.892 mm (> 18.000) MV EF SLOPE: 82 mm/s (70 - 150) EPSS: 0.5 cm MV E Jamey: 0.78 m/s MV DecT: 136 ms MV A Jamey: 1.20 m/s MV E/A Ratio: 0.65 FINDINGS -------- Sinus rhythm. This was a technically difficult study with suboptimal apical views. The left ventricular size is normal. There is moderate concentric left ventricular hypertrophy. O verall left ventricular systolic function is normal with, an EF between 55 - 60 %. The diastolic fi lling pattern is normal for the age of the patient 7.87. The right ventricle is moderately enlarged. Normal LA size by volume 22+/-6 ml/m2. The right atrial size is normal. 5.0mg of Lumason was utilized for enhancement of images Interatrial and interventricular septum intact. There is no evidence of aortic regurgitation. There is no evidence of aortic stenosis. There is trace mitral regurgitation. Trace tricuspid regurgitation present. Unable to estimate RVSP due to inadequate TR jet spectral do ppler profile. There is no pulmonic regurgitation present. The aortic root size is normal. IVC Not well visulized. There is no pericardial effusion. CONCLUSIONS -------- 1. The left ventricular size is normal. 2. There is moderate concentric left ventricular hypertrophy. 3. Overall left ventricular systolic function is normal with, an EF between 55 - 60 %. 4. The diastolic filling pattern is normal for the age of the patient 7.87 5. The right ventricle is moderately enlarged. 6. There is trace mitral regurgitation. 7. Trace tricuspid regurgitation present. PHYSICS TEACHER: Shiloh Najera RDCS
[2020-06-17 11:16] LABS: African American GFR (CKD) 113.4 (60.0-200.0); Albumin 4.1 g/dL (3.80-4.90); Albumin/Globulin Ratio 2.16 (1.60-3.17); Anion Gap 5.3 mmol/L (4.00-12.00); BUN/Creat Ratio 24.44 Ratio (12.00-20.00); C Reactive Protein 4.6 mg/dL (0.0-0.8); Calcium 9.3 mg/dL (8.7-10.3); Carbon Dioxide 28.7 mmol/L (21.6-31.8); Globulin 1.9 g/dL (1.6-3.3); Non-African American GFR(CKD) 97.9 (60.0-200.0); Potassium 4.5 mmol/L (3.5-5.5); Total Bilirubin 0.4 mg/dL (0.3-1.2)
[2020-06-17 11:40] LABS: Glucose,Whole Blood 314 mg/dL (75-99)
--- NOTE | 2020-06-17 12:51 | P.DS ---
<Stiven Jackson - Last Filed: 06/17/20 15:39> Providers Expected date of discharge: 06/17/20 Hospital Course: Discharge Diagnoses: -Dyspnea, Upper Respiratory Infection -IDDM-II with hyperglycemia -HTN -HLD -Morbid obesity Summary of visit: The patient is a 50-year-old male past medical history of type 2 insulin- dependent diabetes mellitus, hypertension, hyperlipidemia, and previous nicotine dependency reportedly smoking 2 packs of cigarettes daily 16 years quitting in 2005. Patient presented to [facility] on 06/15/20 with the chief complaint of fatigue, cough, congestion, and shortness of breath. On arrival to the emergency department he was tachycardic with a heart rate of 103 and his pulse ox is 93% on room air. Initially has lab work revealed leukocytosis with WBC count of 12, a mildly elevated d-dimer of 0.64, elevated CRP at 43.3, LDH 472, and negative Covid 19 PCR. Chest x-ray revealed bilateral atelectasis at bases. CTA negative for pulmonary embolism revealing pleural effusions with basilar mild infiltrate and atelectasis and mediastinal mild lymphadenopathy. Patient was admitted secondary to pulmonary infiltrates concerning for Covid vs bacterial pneumonia vs Covid pneumonitis vs other. Covid 19 PCR and culture were both negative. Influenza A and B PCR also negative. Troponin remained less than 0.12 throughout hospital stay. D-dimer decreased throughout hospital stay from initial presentation of 0.68-0.36 upon discharge. Blood cultures 2 sets revealed no growth after 24 hours. Procalcitonin negative. Hemoglobin A1c significantly elevated 12.4 and blood glucose levels remained elevated as well. Echocardiogram revealing a normal left ventricular size with moderate concentric left ventricular hypertrophy. Ejection fraction between 55 and 60%. Moderately enlarged right ventricle with trace mitral and tricuspid valve regurgitation. Throughout stay, pt reported having resolution of shortness of breath and that only sinus congestion remaining. Ambulatory pulse- oximetry was obtained revealing oxygen saturations to remain at 94-96% on room air. Patient denied having any dyspnea with exertion during or after ambulation up and down the halls and pt continued to deny having any chest pain, dizziness or lightheadedness. Discussed plan for discharge with patient whom discussed with his on the phone. Pt being discharged home at this time and to follow up outpatient with his PCP in 1-2 days for follow-up visit and blood pressure check as patient was hypertensive throughout hospital stay and secondary to this and echocardiogram findings of LVH his lisinopril was increased from 20 mg daily to 40 mg daily. Pt to also follow up with Endocrinolgy in 1 week secondary to significantly to elevated A1c of 12.4 and for continued snf managment of IDDM-II. Patient was instructed to obtain a glucometer and monitor blood glucose levels 3 times daily and keep a journal and bring with him to appointment with referring physician, Dr. Perdomo, gang leader. Lastly, patient to follow-up with pulmonology, Dr. Sierra in 1-2 weeks to schedule out-pt PFTs to rule out any underlying lung disease such as COPD as well as for sleep study to rule out or dx underlying MALU. Physical Examination Stable upon discharge: General: non toxic, no distress, appears at stated age Derm: Skin warm, dry with pink undertones Head: atraumatic, normocephalic, symmetric Eyes: EOMI, no lid lag, anicteric sclera Mouth: no lip lesion, mucus membranes moist Cardiovascular: S1S2 reg rate and rhythm, no murmur, positive posterior tibial pulse bilateral, no lower extremity edema Lungs: Respirations even, regular and unlabored on room air. Lungs CTA bilateral, no rhonchi, no rales or wheezing. No accessory muscle use, no signs of acute respiratory distress. Abdominal: Obese abdomen. soft, nontender to palpation, no guarding, no appreciable organomegaly Extremities: no gross muscle atrophy, no edema, no contractures Neuro: CN II-XII grossly intact, no focal neuro deficits Psych: Alert, oriented, appropriate affect A total of 45 minutes was spent on the care and discharge of this patient. More than 50% of the time was spent in counseling and care coordination. Patient Condition at Discharge: Good Plan - Discharge Summary Discharge Rx Participant: No New Discharge Prescriptions: New lisinopriL 40 mg PO DAILY #30 tab Melatonin 3 mg PO HS PRN tablet PRN Reason: Insomnia guaiFENesin [Mucinex] 600 mg PO Q12HR #60 tablet.er Albuterol Inhaler [Ventolin Hfa Inhaler] 2 puff INHALATION RT-QID PRN #1 puff PRN Reason: Shortness Of Breath Or Wheezing Azithromycin [Zithromax Z-pack (6 tabs)] 0 mg PO DIRECTED 5 Days #6 tab Continue Methylphenidate HCl [Methylphenidate HCl ER] 20 mg PO DAILY metFORMIN HCL 500 mg PO BID Meloxicam [Mobic] 15 mg PO HS Lovastatin [Mevacor] 40 mg PO HS Insulin Glargine,Hum.rec.anlog [Basaglar Kwikpen U-100] 65 unit SQ DAILY Cyclobenzaprine [Flexeril] 10 mg PO HS INSULIN ASPART (NovoLOG) [NovoLOG (formulary)] 60 unit SQ PC-TID Discontinued lisinopriL [Prinivil] 20 mg PO DAILY Discharge Medication List Cyclobenzaprine [Flexeril] 10 mg PO HS 06/15/20 [History] INSULIN ASPART (NovoLOG) [NovoLOG (formulary)] 60 unit SQ PC-TID 06/15/20 [History] Insulin Glargine,Hum.rec.anlog [Basaglar Kwikpen U-100] 65 unit SQ DAILY 06/15/20 [History] Lovastatin [Mevacor] 40 mg PO HS 06/15/20 [History] Meloxicam [Mobic] 15 mg PO HS 06/15/20 [History] Methylphenidate HCl [Methylphenidate HCl ER] 20 mg PO DAILY 06/15/20 [History] metFORMIN HCL 500 mg PO BID 06/15/20 [History] Albuterol Inhaler [Ventolin Hfa Inhaler] 2 puff INHALATION RT-QID PRN #1 puff 06/17/20 [Rx] Azithromycin [Zithromax Z-pack (6 tabs)] 0 mg PO DIRECTED 5 Days #6 tab 06/17/20 [Rx] Melatonin 3 mg PO HS PRN tablet 06/17/20 [Rx] guaiFENesin [Mucinex] 600 mg PO Q12HR #60 tablet.er 06/17/20 [Rx] lisinopriL 40 mg PO DAILY #30 tab 06/17/20 [Rx] Follow up Appointment(s)/Referral(s): Aiden Blanco MD [Primary Care Provider] - 1-2 days Soni Perdomo MD [STAFF PHYSICIAN] - 1 Week Mera Sierra MD [STAFF PHYSICIAN] - 2 Weeks Patient Instructions/Handouts: Type 2 Diabetes in Adults: New Diagnosis (DC) Activity/Diet/Wound Care/Special Instructions: Activity: As tolerated, increase physical activity and prevent sedentary lifestyle. Diet: heart healthy diabetic diet Special Instructions: For outpatient diabetic classes you can contact [phone] and ask for Patti. She will be able to give you more information. Follow up outpatient with your PCP in 1-2 days for follow-up visit and blood pressure check as your lisinopril was increased from 20 mg daily to 40 mg daily. Follow-up with pulmonology, Dr. Sierra in 1-2 weeks to schedule out-pt PFTs and sleep study. Follw up with endocrinolgy, and please obtain a glucometer to monitor blood sugar 3 times daily and keep a journal of these findings to bring with you to endocrinology office with Dr. Perdomo. Discharge Disposition: HOME SELF-CARE <Jyoti Walker - Last Filed: 06/17/20 19:38> Providers Date of admission: 06/15/20 14:54 Attending physician: Jyoti Walker DO Primary care physician: Aiden Blanco
[2020-06-18] MEDS ORDERED: INSULIN DETEMIR (LEVEMIR) 100 UNIT/ML SYR SQ SCH (07:00)
--- NOTE | 2020-06-25 20:28 | CDI ---
Documentation Clarification Form Date: 06/26/20 From: Earl Salgado Phone: If you have a question about this query, please contact Toña Moreland, Forming Mill Operator at [phone] between 8am and 5pm. Admit Date: 06/15/2020 02:54:00 PM Patient Name: Tim Becker Visit Number: [id number] Discharge Date: 06/17/2020 02:31:00 PM ATTENTION: The Clinical Documentation Specialists (CDI) and [facility] Coding Staff appreciate your assistance in clarifying documentation. Please respond to the clarification below the line at the bottom and electronically sign. The CDI & [facility] Coding staff will review the response and follow-up if needed. Please note: Queries are made part of the Legal Health Record. If you have any questions, please contact the author of this message via ITS. Dr. Jyoti Walker MD., The patients principal diagnosis has not been clearly identified and requires clarification. He presented with dyspnea, pulmonary infiltrates. History/Risk factors: IIDDM-II with hyperglycemia, Hyperlipidemia, HTN Clinical Indicators:Patient was admitted secondary to pulmonary infiltrates concerning for Covid vs bacterial pneumonia vs Covid pneumonitis vs other.Covid 19 PCR and culture were both negative.Influenza A and B PCR also negative. Radiology findings: Possible underlying atelectasis, correlate and follow-up. Vital Signs:Temperature 98.2 F Pulse Rate 103 H Respiratory 24 Rate Blood Pressure 175/92 O2 Sat by Pulse 93 L Oximetry Other tx: DS with Azithromycin DS stated "Dyspnea, Upper Respiratory Infection" In your professional opinion, can you please clarify which diagnosis, after study, accounted for the patients presenting symptoms and was the reason chiefly responsible for the admission? Upper respiratory infection - Acute Bacterial Upper respiratory infection- Viral Other,Please specify Upper respiratory infection- Viral MTDD
== END 2020-06-17 14:31 | disposition home or self-care (01) ==
LOC: EC 13:06 → 4SSUR 14:54 → INTOOBSV 14:54 → 4SSUR 15:40 → UNDODISIN 06-17 14:31
PROVIDERS: ADMIT Internal Medicine; ATTEND Internal Medicine
DX: J06.9 Acute upper respiratory infection, unspecified (principal); J90 Pleural effusion, not elsewhere classified; R91.8 Other nonspecific abnormal finding of lung field; J98.11 Atelectasis; R59.0 Localized enlarged lymph nodes; E11.65 Type 2 diabetes mellitus with hyperglycemia; I11.9 Hypertensive heart disease without heart failure; E66.01 Morbid (severe) obesity due to excess calories; R79.1 Abnormal coagulation profile; E78.5 Hyperlipidemia, unspecified; F41.9 Anxiety disorder, unspecified; Z20.828 Contact with and (suspected) exposure to other viral communicable diseases; Z91.14 Patient's other noncompliance with medication regimen; Z79.899 Other long term (current) drug therapy; Z79.4 Long term (current) use of insulin; Z79.1 Long term (current) use of non-steroidal anti-inflammatories (NSAID); Z98.890 Other specified postprocedural states; Z87.891 Personal history of nicotine dependence; Z68.42 Body mass index [BMI] 45.0-49.9, adult; Z87.01 Personal history of pneumonia (recurrent); Z82.49 Family history of ischemic heart disease and other diseases of the circulatory system
CPT/HCPCS: 96361 ×2; 96366; 96367; 96372 ×3; 96365; 99291; 36415; 94640 ×3; 93005; 93306; 85379 ×3; 83880; 80053 ×3; 82728 ×3; 83605; 83615 ×3; 83735; 84484 ×3; 85025 ×3; 85610; 85730; 86140 ×3; 87040; 87070; 87205; 87502; 83036; 84145; 87635; 71045; 71046; 71275; G0378 ×3; U0003; J0456; J0696 ×2; J1650 ×3; J8540 ×3; Q9950; Q9967

== ENCOUNTER 2020-09-09 16:51 | Emergency (ER) | payer BC ==
[2020-09-09 17:29] VITALS: RESP 18; TEMP 97.9
--- NOTE | 2020-09-09 18:49 | ED ---
General Adult HPI - General Source: family Mode of arrival: wheelchair Limitations: no limitations <Keo Osman - Last Filed: 09/09/20 18:49> <Cathy Lares - Last Filed: 09/09/20 22:49> - General Chief complaint: Dizziness Stated complaint: trouble gathering thoughts/dizziness - History of Present Illness Initial comments: pt presenting with dizziness 24 hours. has occasional dizzy episodes but never last this long. not diagnosed with vertigo. States his head is spinning but not the room. Reports a mild headache. states the patient has been feeling "foggy" and not expressing himself over the last several days. Denies lightheadedness, blurry vision, one-sided weakness or paresthesias. (JacquiKeo) 50-year-old male presenting to the emergency department today for chief complaint of dizziness for the past day. Patient states that for years she has had dizziness when he looks up or down quickly. He states that he does feel like the "room is spinning" visually but he feels liek he is on a boat. He states he also feels congested, and has had some "brain fog". Patient staets he just seems run down the past few days. Patient denies fevers he denied lightheadedness or presyncope vision loss sensation deficits weakness diplopia shortness of breath leg swelling. Sometimes when he is dizzy he feels nauseated. He admits ot occasional mild headaches, none currently He denies neck pain, falls trauma. Patient denies increased thirst or urination. Patient denies vomiting. Patient states she has had these episodes in the past, but they usually last only one to 2 hours and subside. Patient states has been pretty consistent for the last 24 hours. Remaining review of system is negative upon arrival patient appears well and nontoxic no acute distress (Cathy Lares) - Related Data Home Medications Medication Instructions Recorded Confirmed Lovastatin [Mevacor] 40 mg PO DAILY 06/15/20 09/09/20 Methylphenidate HCl 20 mg PO DAILY 06/15/20 09/09/20 [Methylphenidate HCl ER] Budesonide [Pulmicort Flexhaler] 2 puff INHALATION RT-BID 09/09/20 09/09/20 Dapagliflozin Propanediol [Farxiga] 10 mg PO DAILY 09/09/20 09/09/20 Glimepiride [Amaryl] 4 mg PO DAILY 09/09/20 09/09/20 Pantoprazole Sodium 40 mg PO DAILY 09/09/20 09/09/20 Semaglutide [Rybelsus] 7 mg PO DAILY 09/09/20 09/09/20 metFORMIN HCL ER [Glucophage Xr] 1,000 mg PO DAILY 09/09/20 09/09/20 Previous Rx's Medication Instructions Recorded Albuterol Inhaler [Ventolin Hfa 2 puff INHALATION RT-QID PRN #1 06/17/20 Inhaler] puff lisinopriL 40 mg PO DAILY #30 tab 06/17/20 Loratadine [Claritin] 10 mg PO DAILY 7 Days #7 tab 09/09/20 Meclizine [Antivert] 25 mg PO BID 7 Days #14 tab 09/09/20 Allergies Allergy/AdvReac Type Severity Reaction Status Date / Time No Known Allergies Allergy Verified 09/09/20 20:35 Review of Systems ROS Other: All systems not noted in ROS Statement are negative. <Keo Osman - Last Filed: 09/09/20 18:49> ROS Other: All systems not noted in ROS Statement are negative. <Cathy Lares - Last Filed: 09/09/20 22:49> ROS Statement: Those systems with pertinent positive or pertinent negative responses have been documented in the HPI. Past Medical History Past Medical History: Diabetes Mellitus, Hyperlipidemia, Hypertension, Pneumonia History of Any Multi-Drug Resistant Organisms: None Reported Past Surgical History: No Surgical Hx Reported Additional Past Surgical History / Comment(s): testicular undescended surgery Past Anesthesia/Blood Transfusion Reactions: No Reported Reaction Past Psychological History: Anxiety Smoking Status: Former smoker Past Alcohol Use History: Rare Past Drug Use History: None Reported - Past Family History Father Family Medical History: Deep Vein Thrombosis (DVT), Pulmonary Embolus Mother Family Medical History: Deep Vein Thrombosis (DVT), Pulmonary Embolus <Keo Osman - Last Filed: 09/09/20 18:49> General Exam Limitations: no limitations <Keo Osman - Last Filed: 09/09/20 18:49> <Cathy Lares - Last Filed: 09/09/20 22:49> - General Exam Comments Initial Comments: General: Well-developed, no distress HEENT: Normocephalic/atraumatic, PERLL, pharynx erythema, TM clear Chest/Lungs: Normal respirations, no signs of respiratory distress clear to auscultation bilaterally no wheezes, rales, rhonchi Cardiac: Regular rate and rhythm Abdomen/GI: Soft nontender, Musculoskeletal: Nontender, full range of motion Skin: Warmth, no rashes or lesions, no diaphoresis Neurologic: AAO x 3, CN 2-12 normal Psychiatric: Mood and affect normal, judgment normal (Keo Osman) General: The patient is awake and alert, in no distress, and does not appear acutely ill. Eye: +3 mm pupils are equal, round and reactive to light, extra-ocular movements are intact. No nystagmus. There is normal conjunctiva bilaterally. No signs of icterus. Ears, nose, mouth and throat: There are moist mucous membranes and no oral lesions. HINTS (-). REd right tympanic membrane without effusion. no bulging. no redness/tenderness of mastoid. nasal congestion. left ear exam WNL. Neck: The neck is supple, there is no tenderness or JVD. Cardiovascular: There is a regular rate and rhythm. No murmur, rub or gallop is appreciated. Respiratory: Lungs are clear to auscultation, respirations are non-labored, breath sounds are equal. No wheezes, stridor, rales, or rhonchi. Gastrointestinal: Soft, non-distended, non-tender abdomen without masses or organomegaly noted. There is no rebound or guarding present. No CVA tenderness. Musculoskeletal: Normal ROM, no tenderness. Strength 5/5. Sensation intact. Pulses equal bilaterally 2+. Neurological: A&O x 3. CN II-XII intact, memory intact to immediately, intermediate and vermin exterminator recall. Able to follow simple verbal. Able to name a common object. High quality, labial (pa) and lingual (la) speech. Low quality posterior pharynx/larynx (ga) voice sounds. Able to express general knowledge (days in a week). No hemineglect or inattention noted. Finger agnosia (-) and spatially oriented (identified L index finger touched R shoulder with L index finger). Light touch and temperature sensation present over the face, chest, abdomen, back, UE bilaterally, and LE bilaterally. Able to localize point during point localization b/l and extinction. No visible bulk atrophy, hypertrophy, fasciculations, or myoclonus of the UE or LE b/l. Full PROM in UE and LE b/l. Bilateral muscle strength 5/5 for the following muscles: deltoid, biceps, triceps, brachioradialis, wrist extensors/flexor, hip flexor, hip ab ductors/adductors, hamstrings, quadriceps, feet dorsiflexors/plantar flexors. Finger to nose, finger to the examiners finger, and heel to mandel coordinated and accurate b/l. Coordinated and even demonstration of hand flip, finger to thumb, and toe tap b/l. (-) Babinski. Gait is coordinated and even in stride. (-) Romberg. (-) pronator drift. No nuchal rigidity. (-) Brudzinskis and Kernig signs. Skin: Skin is warm and dry and no rashes or lesions are noted. No LE edema. no calf pain. Psychiatric: Cooperative, appropriate mood & affect, normal judgment. (Cathy Lares) Course Vital Signs 09/09/20 09/09/20 09/09/20 17:26 20:00 21:00 Temperature 97.9 F Pulse Rate 108 H 92 92 Respiratory 18 18 18 Rate Blood Pressure 126/82 106/77 110/69 O2 Sat by Pulse 97 93 L 98 Oximetry 09/09/20 22:25 Temperature Pulse Rate 93 Respiratory 18 Rate Blood Pressure 125/82 O2 Sat by Pulse 98 Oximetry Medical Decision Making - Lab Data Result diagrams: 09/09/20 19:29 09/09/20 19:29 <Cathy Lares - Last Filed: 09/09/20 22:49> - Medical Decision Making Nontoxic-appearing 50-year-old male presenting for dizziness. He has had episodes on and off for years. More consistent past 24 hours. Imaging negative. Patient has no physical examination findings consistent with central source. Patient does have nasal congestion and erythema of the right tympanic membrane. Given physical examination findings history imaging I feel this is likely peripheral in nature. After discussing the case with any provider we feel patient is stable for discharge with outpatient ENT f/u. Patient treated symptomatically. Recommend pcp f/u for glucose control. Patient agreeable and was requesting discharge on re-evaluation. (Cathy Lares) - Lab Data Lab Results 09/09/20 09/09/20 09/09/20 Range/Units 19:29 19:29 19:29 WBC 10.1 (3.8-10.6) k/uL RBC 6.09 H (4.30-5.90) m/uL Hgb 17.6 H (13.0-17.5) gm/dL Hct 51.6 (39.0-53.0) % MCV 84.8 (80.0-100.0) fL MCH 29.0 (25.0-35.0) pg MCHC 34.2 (31.0-37.0) g/dL RDW 13.9 (11.5-15.5) % Plt Count 287 (150-450) k/uL MPV 7.1 Neutrophils % 64 % Lymphocytes % 24 % Monocytes % 5 % Eosinophils % 4 % Basophils % 1 % Neutrophils # 6.5 (1.3-7.7) k/uL Lymphocytes # 2.4 (1.0-4.8) k/uL Monocytes # 0.5 (0-1.0) k/uL Eosinophils # 0.4 (0-0.7) k/uL Basophils # 0.1 (0-0.2) k/uL PT (9.0-12.0) sec INR (<1.2) APTT (22.0-30.0) sec Sodium 134 L (137-145) mmol/L Potassium 4.3 (3.5-5.1) mmol/L Chloride 100 (98-107) mmol/L Carbon Dioxide 21 L (22-30) mmol/L Anion Gap 13 mmol/L BUN 20 (9-20) mg/dL Creatinine 0.85 (0.66-1.25) mg/dL Est GFR (CKD-EPI)AfAm >90 (>60 ml/min/1.73 sqM) Est GFR (CKD-EPI)NonAf >90 (>60 ml/min/1.73 sqM) Glucose 163 H (74-99) mg/dL POC Glucose (mg/dL) (75-99) mg/dL POC Glu Construction Worker ID Calcium 9.5 (8.4-10.2) mg/dL Magnesium 1.9 (1.6-2.3) mg/dL Total Bilirubin 0.5 (0.2-1.3) mg/dL AST 19 (17-59) U/L ALT 18 (4-49) U/L Alkaline Phosphatase 72 (38-126) U/L Troponin I <0.012 (0.000-0.034) ng/mL Total Protein 7.0 (6.3-8.2) g/dL Albumin 4.4 (3.5-5.0) g/dL Urine Color Urine Appearance (Clear) Urine pH (5.0-8.0) Ur Specific [place] (1.001-1.035) Urine Protein (Negative) Urine Glucose (UA) (Negative) Urine Ketones (Negative) Urine Blood (Negative) Urine Nitrite (Negative) Urine Bilirubin (Negative) Urine Urobilinogen (<2.0) mg/dL Ur Leukocyte Esterase (Negative) Coronavirus (PCR) (Not Detectd) 09/09/20 09/09/20 09/09/20 Range/Units 19:29 19:29 19:29 WBC (3.8-10.6) k/uL RBC (4.30-5.90) m/uL Hgb (13.0-17.5) gm/dL Hct (39.0-53.0) % MCV (80.0-100.0) fL MCH (25.0-35.0) pg MCHC (31.0-37.0) g/dL RDW (11.5-15.5) % Plt Count (150-450) k/uL MPV Neutrophils % % Lymphocytes % % Monocytes % % Eosinophils % % Basophils % % Neutrophils # (1.3-7.7) k/uL Lymphocytes # (1.0-4.8) k/uL Monocytes # (0-1.0) k/uL Eosinophils # (0-0.7) k/uL Basophils # (0-0.2) k/uL PT 10.2 (9.0-12.0) sec INR 0.9 (<1.2) APTT 23.8 (22.0-30.0) sec Sodium (137-145) mmol/L Potassium (3.5-5.1) mmol/L Chloride (98-107) mmol/L Carbon Dioxide (22-30) mmol/L Anion Gap mmol/L BUN (9-20) mg/dL Creatinine (0.66-1.25) mg/dL Est GFR (CKD-EPI)AfAm (>60 ml/min/1.73 sqM) Est GFR (CKD-EPI)NonAf (>60 ml/min/1.73 sqM) Glucose (74-99) mg/dL POC Glucose (mg/dL) (75-99) mg/dL POC Glu Construction Worker ID Calcium (8.4-10.2) mg/dL Magnesium (1.6-2.3) mg/dL Total Bilirubin (0.2-1.3) mg/dL AST (17-59) U/L ALT (4-49) U/L Alkaline Phosphatase (38-126) U/L Troponin I (0.000-0.034) ng/mL Total Protein (6.3-8.2) g/dL Albumin (3.5-5.0) g/dL Urine Color Yellow Urine Appearance Clear (Clear) Urine pH 5.5 (5.0-8.0) Ur Specific [place] 1.033 (1.001-1.035) Urine Protein Negative (Negative) Urine Glucose (UA) 4+ H (Negative) Urine Ketones 2+ H (Negative) Urine Blood Negative (Negative) Urine Nitrite Negative (Negative) Urine Bilirubin Negative (Negative) Urine Urobilinogen <2.0 (<2.0) mg/dL Ur Leukocyte Esterase Negative (Negative) Coronavirus (PCR) Not Detected (Not Detectd) 09/09/20 Range/Units 22:11 WBC (3.8-10.6) k/uL RBC (4.30-5.90) m/uL Hgb (13.0-17.5) gm/dL Hct (39.0-53.0) % MCV (80.0-100.0) fL MCH (25.0-35.0) pg MCHC (31.0-37.0) g/dL RDW (11.5-15.5) % Plt Count (150-450) k/uL MPV Neutrophils % % Lymphocytes % % Monocytes % % Eosinophils % % Basophils % % Neutrophils # (1.3-7.7) k/uL Lymphocytes # (1.0-4.8) k/uL Monocytes # (0-1.0) k/uL Eosinophils # (0-0.7) k/uL Basophils # (0-0.2) k/uL PT (9.0-12.0) sec INR (<1.2) APTT (22.0-30.0) sec Sodium (137-145) mmol/L Potassium (3.5-5.1) mmol/L Chloride (98-107) mmol/L Carbon Dioxide (22-30) mmol/L Anion Gap mmol/L BUN (9-20) mg/dL Creatinine (0.66-1.25) mg/dL Est GFR (CKD-EPI)AfAm (>60 ml/min/1.73 sqM) Est GFR (CKD-EPI)NonAf (>60 ml/min/1.73 sqM) Glucose (74-99) mg/dL POC Glucose (mg/dL) 131 H (75-99) mg/dL POC Glu Construction Worker ID Padmaja, [place] Calcium (8.4-10.2) mg/dL Magnesium (1.6-2.3) mg/dL Total Bilirubin (0.2-1.3) mg/dL AST (17-59) U/L ALT (4-49) U/L Alkaline Phosphatase (38-126) U/L Troponin I (0.000-0.034) ng/mL Total Protein (6.3-8.2) g/dL Albumin (3.5-5.0) g/dL Urine Color Urine Appearance (Clear) Urine pH (5.0-8.0) Ur Specific [place] (1.001-1.035) Urine Protein (Negative) Urine Glucose (UA) (Negative) Urine Ketones (Negative) Urine Blood (Negative) Urine Nitrite (Negative) Urine Bilirubin (Negative) Urine Urobilinogen (<2.0) mg/dL Ur Leukocyte Esterase (Negative) Coronavirus (PCR) (Not Detectd) Disposition <Keo Osman - Last Filed: 09/09/20 18:49> Is patient prescribed a controlled substance at d/c from ED?: No Time of Disposition: 22:08 <Cathy Lares - Last Filed: 03/23/21 22:49> Clinical Impression: Dizziness, Elevated glucose, Nasal congestion Disposition: HOME SELF-CARE Condition: Good Instructions (If sedation given, give patient instructions): Dizziness (ED) Additional Instructions: Please use medication as discussed. Please follow-up with family doctor in the next 2 days. Please return to emergency room if the symptoms increase or worsen or for any other concerns. Prescriptions: Meclizine [Antivert] 25 mg PO BID 7 Days #14 tab Loratadine [Claritin] 10 mg PO DAILY 7 Days #7 tab Referrals: Aiden Blanco MD [Primary Care Provider] - 1-2 days Dima Garcia MD [STAFF PHYSICIAN] - 1-2 days Glory Alejandre MD [REFERRING] - 1-2 days
[2020-09-09 19:41] LABS: Appearance,Urine Clear (Clear); Basophils # (A) 0.1 k/uL (0-0.2); Basophils % (A) 1 %; Bilirubin,Urine Negative (Negative); Blood,Urine Negative (Negative); Color,Urine Yellow; Eosinophils # (A) 0.4 k/uL (0-0.7); Eosinophils % (A) 4 %; Glucose,Urine (UA) 4+ (Negative); HCT 51.6 % (39.0-53.0); HGB 17.6 gm/dL (13.0-17.5); Leukocyte Esterase,Urine Negative (Negative); Lymphocytes # (A) 2.4 k/uL (1.0-4.8); Lymphocytes % (A) 24 %; MCHC 34.2 g/dL (31.0-37.0); MCV 84.8 fL (80.0-100.0); Mean Platelet Volume 7.1; Monocytes # (A) 0.5 k/uL (0-1.0); Monocytes % (A) 5 %; Neutrophils # (A) 6.5 k/uL (1.3-7.7); Neutrophils % (A) 64 %; Nitrite,Urine Negative (Negative); PH, Urine 5.5 (5.0-8.0); Platelet Count 287 k/uL (150-450); Protein,Urine Negative (Negative); RBC 6.09 m/uL (4.30-5.90); RDW 13.9 % (11.5-15.5); Specific Gravity,Urine 1.033 (1.001-1.035); Urobilinogen,Urine <2.0 mg/dL (<2.0); WBC 10.1 k/uL (3.8-10.6)
[2020-09-09 19:50] LABS: ALT 18 U/L (4-49); AST 19 U/L (17-59); African American GFR (CKD) >90 (>60 ml/min/1.73 sqM); Albumin 4.4 g/dL (3.5-5.0); Alkaline Phosphatase 72 U/L (38-126); Anion Gap 13 mmol/L; Blood Urea Nitrogen 20 mg/dL (9-20); Calcium 9.5 mg/dL (8.4-10.2); Carbon Dioxide 21 mmol/L (22-30); Chloride 100 mmol/L (98-107); Glucose 163 mg/dL (74-99); INR 0.9 (<1.2); Magnesium 1.9 mg/dL (1.6-2.3); Non-African American GFR(CKD) >90 (>60 ml/min/1.73 sqM); Partial Thromboplastin Time 23.8 sec (22.0-30.0); Potassium 4.3 mmol/L (3.5-5.1); Prothrombin Time 10.2 sec (9.0-12.0); Sodium 134 mmol/L (137-145); Total Bilirubin 0.5 mg/dL (0.2-1.3)
--- NOTE | 2020-09-09 19:51 | XR ---
EXAMINATION TYPE: XR chest 2V DATE OF EXAM: 09/09/2020 COMPARISON: 06/16/2020. HISTORY: Dizziness. TECHNIQUE: Frontal and lateral views of the chest are obtained. FINDINGS: There is no focal air space opacity, pleural effusion, or pneumothorax seen. The cardiac silhouette size is within normal limits. The osseous structures are intact. IMPRESSION: No acute cardiopulmonary process.
[2020-09-09 20:21] LABS: Ketones,Urine 2+ (Negative)
--- NOTE | 2020-09-09 20:48 | CT ---
EXAMINATION TYPE: CT brain wo con DATE OF EXAM: 09/09/2020 COMPARISON: None available. HISTORY: headache and dizziness CT DLP: 1188.4 mGycm Automated exposure control for dose reduction was used. FINDINGS: There is no acute intracranial hemorrhage, midline shift or hydrocephalus. The levine-white differentia tion and white matter grossly preserved. The calvarium is intact. The paranasal sinuses or mastoid ai r cells are adequately aerated. IMPRESSION: NO ACUTE INTRACRANIAL ABNORMALITY.
[2020-09-09] MEDS ORDERED: SODIUM CHLORIDE 0.9% 1,000 ML IV ONE (20:53)
[2020-09-09] MEDS ORDERED: SODIUM CHLORIDE 0.9% 1,000 ML IV SCH (21:00)
--- NOTE | 2020-09-09 21:00 | CT ---
EXAM: CTA HEAD INDICATION: Dizziness and headache. COMPARISON: None. TECHNIQUE: CTA of the head was performed following the use of 100 mL Isovue-370 intravenous contrast. Multiplanar and MIP reformats generated and reviewed. Stenosis evaluation is based on [place] Symptomatic Carotid Endarterectomy Trial (NASCET). FINDINGS: INTRACRANIAL There is no evidence of high-grade stenosis, dissection or aneurysm in the imaged intracranial merchandising intern al carotid arteries, anterior, middle and posterior cerebral arteries as well as in the imaged verteb ral and basilar arteries. The communicating arteries are unremarkable. IMPRESSION: No significant abnormality of the CTA head.
[2020-09-09] MEDS ORDERED: DIAZEPAM 5 MG/ML 2 ML INJ IVP STA (21:07)
[2020-09-09] MEDS ORDERED: METOCLOPRAMIDE 5 MG/ML 2 ML VIAL IVP STA (21:07)
[2020-09-09] MEDS ORDERED: MECLIZINE 12.5 MG TAB PO STA (21:08)
[2020-09-09] MEDS ORDERED: diphenhydrAMINE 50 MG/ML 1 ML VIAL IVP STA (21:08)
[2020-09-09 22:12] LABS: Glucose,Whole Blood 131 mg/dL (75-99)
[2020-09-09 22:26] VITALS: BP 125/82; PULSE 93
== END 2020-09-09 22:26 | disposition home or self-care (01) ==
LOC: EC 16:51
DX: E11.65 Type 2 diabetes mellitus with hyperglycemia (principal); E78.5 Hyperlipidemia, unspecified; I10 Essential (primary) hypertension; F41.9 Anxiety disorder, unspecified; Z79.51 Long term (current) use of inhaled steroids; R09.81 Nasal congestion; Z87.891 Personal history of nicotine dependence; Z79.84 Long term (current) use of oral hypoglycemic drugs; Z20.822 Contact with and (suspected) exposure to COVID-19
CPT/HCPCS: 36415; 93005; 80053; 83735; 84484; 85025; 85610; 85730; 81003; 87635; 71046; 70496; 70450; 99284; 96374; 96375; 96361; J1200; J2765; Q9967

== ENCOUNTER → 2021-02-14 | Outpatient (CLI) | payer BC ==
[2021-02-14 15:37] LABS: African American GFR (CKD) 99.8 (60.0-200.0); Albumin 4.9 g/dL (3.80-4.90); Albumin/Globulin Ratio 2.45 (1.60-3.17); Anion Gap 6.9 mmol/L (4.00-12.00); Calcium 9.8 mg/dL (8.7-10.3); Carbon Dioxide 26.1 mmol/L (21.6-31.8); Chol/HDL Ratio 3.85; LDL Cholesterol,Calculated 106.4 mg/dL (0.0-131.0); Non-African American GFR(CKD) 86.2 (60.0-200.0); Potassium 4.3 mmol/L (3.5-5.5); Total Bilirubin 0.4 mg/dL (0.3-1.2); Total Protein 6.9 g/dL (6.2-8.2); VLDL Calculation 30.6 mg/dL (5.00-40.00)
[2021-02-14 16:42] LABS: Hemoglobin A1C 9.2 % (4.0-6.0)
[2021-02-14 16:45] LABS: Urine Creatinine 75.1 mg/dL
== END | disposition home or self-care (01) ==
LOC: LABWHC1 08:33
PROVIDERS: ATTEND Internal Medicine Endocrinology, Diabetes & Metabolism
DX: E11.65 Type 2 diabetes mellitus with hyperglycemia (principal)
CPT/HCPCS: 36415; 80053; 80061; 82043; 82570; 83036; 84443

== ENCOUNTER → 2021-12-22 | Outpatient (CLI) | payer BC ==
[2021-12-22 18:23] LABS: ALT 27 U/L (10-49); AST 14 U/L (14-35); African American GFR (CKD) 86.5 (60.0-200.0); Albumin 4.7 g/dL (3.8-4.9); Albumin/Globulin Ratio 1.97 (1.60-3.17); Alkaline Phosphatase 88 U/L (41-126); BUN/Creat Ratio 23.04 Ratio (12.00-20.00); Blood Urea Nitrogen 25.8 mg/dL (9.0-27.0); Calcium 9.9 mg/dL (8.7-10.3); Carbon Dioxide 22.6 mmol/L (20.0-27.5); Chloride 101 mmol/L (96-109); Chol/HDL Ratio 4.13 Ratio; Globulin 2.4 g/dL (1.6-3.3); Glucose 255 mg/dL (70-110); LDL Cholesterol,Calculated 85.6 mg/dL (0.0-131.0); Non-African American GFR(CKD) 74.6 (60.0-200.0); Potassium 5.2 mmol/L (3.5-5.5); Sodium 136 mmol/L (135-145); Total Protein 7.1 g/dL (6.2-8.2)
[2021-12-22 21:45] LABS: Microalbumin Creatinine Ratio <30 mg/g Creat (0-30); Urine Creatinine 75.5 mg/dL (39.0-259.0)
== END | disposition home or self-care (01) ==
LOC: LABWHC1 11:53
PROVIDERS: ATTEND Internal Medicine Endocrinology, Diabetes & Metabolism
DX: E11.65 Type 2 diabetes mellitus with hyperglycemia (principal)
CPT/HCPCS: 36415; 80053; 80061; 82043; 82570; 83036; 84443

== ENCOUNTER → 2023-11-29 | Outpatient (CLI) | payer OTHER ==
[2023-11-29 15:14] LABS: Chol/HDL Ratio 2.41 Ratio; Glucose 202 mg/dL (70-110); LDL Cholesterol,Calculated 51.2 mg/dL (0.0-131.0)
[2023-11-29 15:15] LABS: ALT 25 U/L (10-49); AST 22 U/L (14-35); Albumin 4.5 g/dL (3.8-4.9); Albumin/Globulin Ratio 2.37 Ratio (1.60-3.17); Alkaline Phosphatase 79 U/L (41-126); Calcium 9.7 mg/dL (8.7-10.3); Carbon Dioxide 21.8 mmol/L (21.6-31.8); Chloride 106 mmol/L (96-109); Globulin 1.9 g/dL (1.6-3.3); Potassium 4.8 mmol/L (3.5-5.5); Sodium 139 mmol/L (135-145); Total Bilirubin 0.3 mg/dL (0.3-1.2); Total Protein 6.4 g/dL (6.2-8.2)
[2023-11-29 20:37] LABS: Microalbumin Creatinine Ratio <10 mg/g Cr (0-30)
== END | disposition home or self-care (01) ==
LOC: LABWHC1 08:25
PROVIDERS: ATTEND Internal Medicine Endocrinology, Diabetes & Metabolism
DX: E11.65 Type 2 diabetes mellitus with hyperglycemia (principal)
CPT/HCPCS: 36415; 80053; 80061; 82043; 82570; 83036; 84443